=== PATIENT | female | born 1995 | race Caucasian/White ===

== ENCOUNTER 2024-01-03 22:37 | Inpatient (IN) | payer BC, SELFPAY ==
[2024-01-03 22:00] VITALS: BMI 27.8
[2024-01-03 22:33] VITALS: RESP 16
[2024-01-03 22:50] LABS: Basophils # 0.1 10^3/uL (0.0-0.1); Basophils % 0.4 %; Eosinophils # 0.1 10^3/uL (0.0-0.8); Eosinophils % 0.5 %; Hematocrit 36.8 % (36-47); Lymphocytes # 2.3 10^3/uL (0.8-4.8); Lymphocytes % 17.2 %; Mean Corpuscular HGB Conc 33.2 g/dL (30-55); Mean Corpuscular Hemoglobin 29.8 pg (27-33); Mean Platelet Volume 10.2 fL (7.4-10.4); Monocytes # 0.7 10^3/uL (0.2-0.9); Monocytes % 5.5 %; Neutrophils # 10.14 10^3/uL (1.8-7.7); Neutrophils % 75.7 %; Nucleated Red Blood Cells % 0 %; Platelet Count 242 10^3/cmm (157-399); Red Blood Count 4.09 10^6/uL (3.85-5.65); Red Cell Distribution Width 12.4 % (12.1-15.1); White Blood Count 13.39 10^3/uL (3.29-11.43)
[2024-01-03] MEDS: lactated ringers 1,000 ML 999 ML IV (23:12)
[2024-01-04] VITALS (90 sets, daily range): BP systolic 95–152; BP diastolic 50–89; PULSE 69–116; RESP 16–18; TEMP 36.3–37.7; O2SAT 97–100; BMI 27.8
--- NOTE | 2024-01-04 00:05 | P.ANESASSM_ITS ---
Pre-Anesthetic Assessment Height/Weight: Height 1.65 m Weight 75.75 kg Resp O2 Del Method 16 Room Air 01/03/24 22:33 01/03/24 22:00 Preop Diagnosis: Labor pain epidural Was Beta Hattie taken within 24 hours: N/A Was Clonidine taken within 24 hours: N/A Social No alcohol and No tobacco Exam alert, oriented x 3, clear to auscultation bilaterally and regular rate & rhythm Airway Submandibular: within normal limits Cervical ROM: within normal limits Mallampati: Class II Dentition: full Pulmonary None reported CV/HEM None reported None reported Hepatic None reported GI None reported Metabolic None reported Musc/skel None reported Neuropsych None reported Anesthetic Plan ASA status: 2 Anesthesia: Eval. for regional block and Regional (specify below) Risk of > 500 ml blood loss (7ml/kg in children): No Medications/Allergies Current Medications Generic Name Dose Route Start Last Admin Trade Name Freq PRN Reason Stop Dose Admin Lactated Ringer's 1,000 mls @ 999 mls/hr 01/03/24 22:56 01/03/24 23:12 Lactated Ringers IV 999 mls/hr .Q1H1M PRN Administration See label comments PFSH Anesthesia Female Reproductive History : 2 Data Anesthesia 01/03/24 22:40 Short CBC 01/03/24 Range/Units 22:40 WBC 13.39 H (3.29-11.43) 10^3/uL Hgb 12.20 (11.27-16.99) g/dL Hct 36.8 (36-47) % MCV 90.0 (85-98) fl Plt Count 242 (157-399) 10^3/cmm Neut % (Auto) 75.7 % Neut # (Auto) 10.14 H (1.8-7.7) 10^3/uL Blood Bank 01/03/24 22:40 Blood Type O Negative Rho(D) Type Rh negative Cardiac Studies: 2 No Data to Display
[2024-01-04] MEDS: lactated ringers 1,000 ML 999 ML IV (00:11)
[2024-01-04] MEDS: ROPivacaine syringe 100 MG/50 ML SYRINGE 13 MG EPIDURAL ×3 (00:27→06:31)
--- NOTE | 2024-01-04 00:37 | ANES.PROC ---
Anesthesia Procedures Procedure/Date: 01/04/24 epidural Procedure Narrative: epidural complete, bolus given, epidural pump initiated with TRACK VEHICLE REPAIRER education given, vitals taken during procedure and satisfactory throughout, patient admits to decrease pain, report of procedure to OB RN Epidural: Time Out Performed: Yes Consents Signed: Procedure Consent Consent: requested by attending/covering physician, from patient, risks and benefits reviewed and patient agrees to proceed Lumbar Level: L3-L4 Epidural position: sitting Epidural procedure: sterile prep of area, 1% lidocaine to numb the area (3 mL), 18 g needle, negative for paresthesia passed, neg for paresthesia, test dose given, 1.5% xylocaine 1:200k epi (5 mL), 0.2% Ropivacaine bolus ml (5 mL), placed PCEA, no systemic response, sterile dressing applied, L.U.D. no apparent complications and 0.2% Ropiavacaine @ mls/hr (13 mL/hr)
[2024-01-04] MEDS: dextrose 5%-lactated ringers 1,000 ML 125 ML IV (01:20)
--- NOTE | 2024-01-04 02:39 | P.PN_ITS ---
Subjective 2 Medications: Medication Review Details: Epidural assessed after patient complaints of returned discomfort during contractions. 10 mL of 2% lidocaine and 100 mcg of fentanyl given through epidural. After 15 min of no change plans were discussed to remove existing epidural and replace with a new catheter. Vitals/I&O/Wt Last Vital Signs Pulse 85 01/04/24 02:29 Resp 16 01/03/24 22:33 BP 112/66 01/04/24 02:29 Pulse Ox 100 01/04/24 00:25 O2 Del Method Room Air 01/03/24 22:00 01/03/24 01/03/24 01/04/24 14:59 22:59 06:59 Intake Total 2049 Balance 2049 Weight last 48 hrs Weight 75.75 kg Physical Exam 2 Const: COMMON NORMALS: alert Neuro: SENSORIUM/ORIENTATION: Yes alert Urinary Catheter Management: Mott: Cath Placed During This Visit: yes Urinary Catheter Date of Insertion: 01/04/24 Urinary Catheter Time of Insertion: 00:07 Data 01/03/24 22:40 Attestations 2 Medical Necessity Statement*: Pain with contractions post epidural placement Coding Level of Care Code Acute Code for Chg Fwd
--- NOTE | 2024-01-04 02:53 | PC.NURSE ---
Removed by Emely, MAGDIEL
--- NOTE | 2024-01-04 03:24 | PC.NURSE ---
Second attempt at epidural due to first not working properly for pain management.
--- NOTE | 2024-01-04 03:34 | ANES.PROC ---
Anesthesia Procedures Procedure/Date: 01/04/24 epidural Procedure Narrative: Previous epidural removed with blue tip intact, second epidural completed, bolus given, epidural pump initiated with INSURANCE SALES ASSISTANT education given, vitals taken during procedure and satisfactory throughout, patient admits to decrease pain, report of procedure to OB RN Epidural: Time Out Performed: Yes Consents Signed: Procedure Consent Consent: requested by attending/covering physician, from patient, risks and benefits reviewed and patient agrees to proceed Lumbar Level: L2-L3 Epidural position: sitting Epidural procedure: sterile prep of area, 1% lidocaine to numb the area (3 mL), 18 g needle, negative for paresthesia passed, neg for paresthesia, test dose given, 1.5% xylocaine 1:200k epi (5 mL), 0.2% Ropivacaine bolus ml (5 mL), placed PCEA, no systemic response, sterile dressing applied, L.U.D. no apparent complications and 0.2% Ropiavacaine @ mls/hr (13 mL/hr)
--- NOTE | 2024-01-04 07:17 | PM.OPHPUD ---
Labor & Delivery H&P Update Date of Procedure: January 04, 2024 Date H&P Performed: 01/03/24 H&P update information: I have reviewed H&P completed within last 30 days and I have examined patient prior to procedure Admission Diagnosis: 28-year-old 2 para 1-0-0-1 at 40 weeks and 4 days presenting in active labor. Preop diagnosis: Labor pain Other information: The patient has had an unremarkable . Her labs are as follows. Her blood type is O-. Her antibody screen was negative. She is rubella immune. She is GBS negative. She failed her first glucose screen but passed her 3-hour glucose screen. Her infectious disease profile is within normal limits. Related Problem List Diagnoses (1) 40 weeks gestation of : A&P Assessment and plan (1) 40 weeks gestation of : I anticipate routine labor and vaginal delivery. Status: Acute
[2024-01-04] MEDS: oxytocin 30 UNIT/500 ML BAG 600 UNIT IV (08:14)
--- NOTE | 2024-01-04 08:28 | PM.DELIVERY ---
Delivery Note: Date of delivery: January 04, 2024 Pre-delivery diagnoses: 28-year-old 2 para 1-0-0-1 at 40 weeks estimated gestational age Post-delivery diagnoses: Status post spontaneous vaginal delivery Procedure: Spontaneous vaginal delivery Delivering Physician: Roni Colvin Estimated blood loss (mL): 100 Pre-Delivery Course: The patient presented to the hospital in active labor. She had an epidural placed. Initially, it worked great, then it suddenly stopped working. A second epidural was placed which worked great. She progressed to 8 cm. An amniotomy was performed. She progressed to complete. She then pushed for about half hour. History History History 2 Term 1 0 Miscarriages/Ectopic 0 Living Children 1 A&P Assessment and plan (1) 40 weeks gestation of : (2) Spontaneous vaginal delivery: I anticipate routine care Coding Level of Care Code Acute Code for Chg Fwd Diagnoses 40 weeks gestation of Z3A.40 Spontaneous vaginal delivery O80
[2024-01-04] MEDS: lanolin oint 7 gm 1 APPLIC TOPICAL (12:14)
[2024-01-04] MEDS: benzocaine-menthol 78 gm Canister 1 SPRAY TOPICAL (12:14)
[2024-01-04] MEDS: docusate sodium 100 mg Capsule PO (12:14)
[2024-01-04] MEDS: ibuprofen 800 mg tablet PO (21:20)
[2024-01-05 00:07] LABS: Mean Corpuscular HGB Conc 33.4 g/dL (30-55); Mean Corpuscular Hemoglobin 30.4 pg (27-33); Mean Corpuscular Volume 90.9 fl (85-98); Mean Platelet Volume 10.8 fL (7.4-10.4); Platelet Count 209 10^3/cmm (157-399); Red Blood Count 3.52 10^6/uL (3.85-5.65); Red Cell Distribution Width 12.8 % (12.1-15.1); White Blood Count 13.68 10^3/uL (3.29-11.43)
[2024-01-05 04:00] VITALS: BP 108/71; PULSE 76; RESP 18; TEMP 36.7
--- NOTE | 2024-01-05 08:00 | ANE.PACU2 ---
Inpatient post-anesthesia follow up: Airway intact: Yes Vital signs: Temperature 97.9 F Pulse Rate 71 Respiratory Rate 16 Blood Pressure 111/75 Pulse Oximetry 97 Oxygen Delivery Me thod Room Air Oxygen Flow Rate Fraction of Inspir ed Oxygen Hydration adequate: Yes Nausea and vomiting: No Pain level: 1 Mental status: Baseline Epidural Start/End: Epidural Start Date: 01/03/24 Epidural Start Time: 00:15 Epidural End Date: 01/04/24 Epidural End Time: 09:15
[2024-01-05] MEDS: docusate sodium 100 mg Capsule PO (09:32)
[2024-01-05] MEDS: ibuprofen 800 mg tablet PO (09:32)
--- NOTE | 2024-01-05 09:35 | PM.OBGYDC ---
Discharge Providers STRATEGIC PLANNING CONSULTANT Date of Admission: 01/03/24 22:37 Date of Discharge: 01/05/24 Attending Provider at Admission: Roni Colvin MD Attending Provider at Discharge: Roni Colvin MD Primary Care Provider: Roni Colvin MD Diagnoses at Discharge Discharge Diagnosis (1) 40 weeks gestation of : Status: Acute (2) Spontaneous vaginal delivery: Status: Acute Reason for Visit Reason for Visit: labor Hospital Course Hospital Course The patient presented to the hospital in active labor. She had epidural that was effective. She had a follow-up epidural with excellent. An amniotomy was performed. She then progressed to complete and had an unremarkable delivery of a healthy female . She had a second-degree tear which was repaired in usual fashion. Her course was otherwise been unremarkable. Her bleeding has been within normal limits. Her pain has been well-controlled. She has been breast-feeding well. Information Peripartum Data: Delivery Method: Vaginal Physical Exam Narrative: The patient is alert. She appears comfortable. Her heart has a regular rate and rhythm with no murmurs appreciated. Lungs are clear to auscultation bilaterally. Her fundus is firm and below the umbilicus. Urinary Catheter Management: Mott: Cath Placed During This Visit: yes, but has since been removed by the nurse Reason for Continuing Indwelling Catheter: Decision to DC Catheter Urinary Catheter Date of Insertion: 01/04/24 Urinary Catheter Time of Insertion: 00:07 Date Urinary Catheter Removed: 01/04/24 Time Urinary Catheter Discontinued: 08:05 History History History 2 Term 1 0 Miscarriages/Ectopic 0 Living Children 1 Discharge Data Studies Completed and Pending Pending at discharge Category Date Time Status Complete Crossmatch Routine Lab 01/04/24 21:15 Results Maternal Hemorrhage Scrn Routine Lab 01/04/24 21:15 Results Rho D Immune Globulin Routine Lab 01/04/24 21:15 Results Laboratory Results WBC 13.68 10^3/uL (3.29-11.43) H 01/04/24 21:15 RBC 3.52 10^6/uL (3.85-5.65) L 01/04/24 21:15 Hgb 10.70 g/dL (11.27-16.99) L 01/04/24 21:15 Hct 32.0 % (36-47) L 01/04/24 21:15 MCV 90.9 fl (85-98) 01/04/24 21:15 MCH 30.4 pg (27-33) 01/04/24 21:15 MCHC 33.4 g/dL (30-55) 01/04/24 21:15 RDW 12.8 % (12.1-15.1) 01/04/24 21:15 Plt Count 209 10^3/cmm (157-399) 01/04/24 21:15 MPV 10.8 fL (7.4-10.4) H 01/04/24 21:15 Neut % (Auto) 75.7 % 01/03/24 22:40 Lymph % (Auto) 17.2 % 01/03/24 22:40 Banks % (Auto) 5.5 % 01/03/24 22:40 Eos % (Auto) 0.5 % 01/03/24 22:40 Baso % (Auto) 0.4 % 01/03/24 22:40 Neut # (Auto) 10.14 10^3/uL (1.8-7.7) H 01/03/24 22:40 Lymph # (Auto) 2.3 10^3/uL (0.8-4.8) 01/03/24 22:40 Banks # (Auto) 0.7 10^3/uL (0.2-0.9) 01/03/24 22:40 Eos # (Auto) 0.1 10^3/uL (0.0-0.8) 01/03/24 22:40 Baso # (Auto) 0.1 10^3/uL (0.0-0.1) 01/03/24 22:40 Nucleated RBC % (auto) 0 % 01/03/24 22:40 Nucleated RBCs # 0.0 /100WBC 01/03/24 22:40 Blood Type O Negative 01/03/24 22:40 Rho(D) Type Rh negative 01/03/24 22:40 Antibody Screen Positive 01/03/24 22:40 Antibody Identification Anti-D 01/03/24 22:40 Screen Negative (Negative) 01/04/24 21:15 Vitals Last Vital Signs Temp 98.1 F 01/05/24 04:00 Pulse 76 01/05/24 04:00 Resp 18 01/05/24 04:00 BP 108/71 01/05/24 04:00 Pulse Ox 97 01/04/24 16:15 O2 Del Method Room Air 01/04/24 16:15 Results Labs OB ([facility]): Obstetrics US 10/21/23 Blood Type O Negative 01/03/24 Antibody Screen Positive 01/03/24 Hct 32.0 % (36-47) L 01/04/24 Hgb 10.70 g/dL (11.27-16.99) L 01/04/24 Rho(D) Type Rh negative 01/03/24 Plt Count 209 10^3/cmm (157-399) 01/04/24 Discharge Plan Discharge Patient Disposition: Home Condition: Stable Prescriptions: New ibuprofen 800 mg Tablet 800 mg PO TID Qty: 45 0RF Continued 1 tab PO DAILY Discharge Orders: Discharge Order (Routine); Ordered 01/05/24 Ordered By: Roni Colvin Discharge Diet: Usual diet Discharge Activity: Limit activity as instructed Patient Instructions: Depression (GEN), Bleeding (GEN), Hemorrhage (GEN), OB Food/Drug Interaction Guide, OB Care at Home, OB Home Care, OB Vaginal Deliveries, Abnormal Bleeding Discharge Attestations STRATEGIC PLANNING CONSULTANT Time Spent in Discharge Care*: less than 30 min Coding Level of Care Code Acute Code for Chg Fwd Diagnoses 40 weeks gestation of Z3A.40 Spontaneous vaginal delivery O80
[2024-01-05 10:50] VITALS: BP 111/75; PULSE 71; RESP 16; TEMP 36.6
[2024-01-05 11:00] VITALS: BP 111/75; PULSE 71; RESP 16; TEMP 36.6
== END 2024-01-05 11:10 | disposition home or self-care (01) | DRG 807 ==
LOC: OPOB 22:37 → OBGYN 22:38
PROVIDERS: Admitting Provider Family Medicine; PCP Family Medicine; Visit Provider Family Medicine
DX: O70.1 Second degree perineal laceration during delivery (principal); Z37.0 Single live birth; Z3A.40 40 weeks gestation of pregnancy
CPT/HCPCS: 36415; 36430; 51702; 59025; 59409; 80503; 85025; 85027; 85460; 86850; 86870; 86900; 90384; 96372; 96374; 99211; J2590; J2795; J3010; J7120; J7121

== ENCOUNTER 2025-03-15 14:44 | Emergency (ER) | payer BC, SELFPAY ==
[2025-03-15] VITALS (7 sets, daily range): BP systolic 108–120; BP diastolic 59–68; PULSE 68–83; RESP 16–21; TEMP 36.6; O2SAT 97–100; BMI 23.3
--- NOTE | 2025-03-15 14:51 | ECG_ITS ---
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 Measurements Intervals [place] Rate: 71 P: 66 MN: 174 QRS: 58 QRSD: 62 T: 18 QT: 346 QTc: 377 Interpretive Statements SINUS RHYTHM WITH SINUS ARRHYTHMIA SEPTAL MYOCARDIAL INFARCTION , OF INDETERMINATE AGE [40+ ms Q WAVE IN V1/V2] No previous ECG available for comparison Electronically Signed On 03-16-2025 11:36:42 CDT by Tony Mclean M.D. [email or web address]
--- NOTE | 2025-03-15 14:57 | XR_ITS ---
WS: [id number] XR chest 1V portable [id number] REASON FOR EXAM: cp FINDINGS: The heart and the mediastinum are within normal limits. Calcified granulomas disease bilaterally. No acute pulmonary parenchymal or pleural abnormality is identified. Bony thorax is intact without significant focal abnormality. XR/XR chest 1V portable [id number] IMPRESSION: Acute chest abnormality.
--- NOTE | 2025-03-15 14:58 | W.ED.CHESTPA ---
HPI - Chest Pain General: Chief Complaint: Chest Pain Stated Complaint: cp,sob Time Seen by Provider: 03/15/25 14:47 Source: patient Mode of arrival: ambulatory Limitations: no limitations History of Present Illness: 29-year-old female who states over the last week she has been having some chest pain states been a sharp pain in the center of her chest she has had some slight exertional dyspnea as well. States pains roughly 2 out of 10 she denies any cough denies any fever denies any vomiting or diarrhea. Associated symptoms: Reports dyspnea; Deny abdominal pain, fever(s), nausea or vomiting Related Data Home Medications ?Medication ?Instructions ?Recorded ?Confirmed 1 tab PO DAILY 01/04/24 01/05/24 Previous Rx's ?Medication ?Instructions ?Recorded ibuprofen 800 mg tablet 800 mg PO TID #45 tabs 01/05/24 Allergies Allergy/AdvReac Type Severity Reaction Status Date / Time No Known Allergies Allergy Verified 01/05/24 03:10 Review of Systems Const: Denies: fever(s), chills, body aches or change in appetite ENMT: Denies: throat pain or dental pain Card: Reports: chest pain Resp: Reports: dyspnea GI: Denies: abdominal pain, nausea, vomiting or diarrhea Musc: Denies: neck pain or back pain Skin/Breast: Denies: rash Neuro: Denies: headache(s) Physical Exam Const: COMMON NORMALS: no acute distress, patient oriented x3 and healthy appearing HENMT: COMMON NORMALS: normocephalic and atraumatic HEAD & SCALP: normocephalic and atraumatic Eye: COMMON NORMALS: conjunctivae normal CONJUNCTIVA: Yes conjunctivae normal Neck/C-Spine: COMMON NORMALS: full ROM and supple Chest: COMMONS NORMALS: normal inspection of the chest Resp: COMMON NORMALS: normal respiratory effort, No retractions, No use of accessory muscles and clear to auscultation bilaterally AUSCULTATION: clear to auscultation bilaterally Cardio: COMMON NORMALS: regular rate, regular rhythm and No murmurs present (Cardio) RATE: regular rate RHYTHM: regular rhythm Extremity: COMMON NORMALS: normal to inspection and full ROM Neuro: COMMON NORMALS: patient oriented x3, moves all extremities and no focal motor deficits Psych: COMMON NORMALS: mental status grossly normal, Normal thought process present and cooperative THOUGHT PROCESS: Normal thought process present Skin: COMMON NORMALS: no rashes or lesions noted and no wounds GENERAL SKIN EXAM: no rashes or lesions noted Course Vital Signs: Vital signs: Vital Signs Temperature 97.9 F 03/15/25 14:57 Pulse Rate 72 03/15/25 15:35 Respiratory Rate 19 H 03/15/25 15:35 Blood Pressure 114/64 03/15/25 15:35 Pulse Oximetry 100 03/15/25 15:35 Oxygen Delivery Me thod Room Air 03/15/25 14:57 MDM - Chest Pain Medical Decision Making Patient presents here chest pain is atypical in nature she is well-appearing here D-dimer troponins are negative no signs of dissection she is stable for discharge follow-up PCP return if worsening. Medical Records I reviewed the patient's medical records. Lab Data I reviewed the patient's lab results. 03/15/25 14:55 03/15/25 14:55 Radiology Impressions Chest X-Ray 03/15/25 14:57 IMPRESSION: Acute chest abnormality. Laboratory Results WBC 6.22 10^3/uL (3.29-11.43) 03/15/25 14:55 RBC 4.49 10^6/uL (3.85-5.65) 03/15/25 14:55 Hgb 13.30 g/dL (11.27-16.99) 03/15/25 14:55 Hct 40.9 % (36-47) 03/15/25 14:55 MCV 91.1 fl (85-98) 03/15/25 14:55 MCH 29.6 pg (27-33) 03/15/25 14:55 MCHC 32.5 g/dL (30-55) 03/15/25 14:55 RDW 11.5 % (12.1-15.1) L 03/15/25 14:55 Plt Count 209 10^3/cmm (157-399) 03/15/25 14:55 MPV 10.6 fL (7.4-10.4) H 03/15/25 14:55 Neut % (Auto) 62.5 % 03/15/25 14:55 Lymph % (Auto) 29.6 % 03/15/25 14:55 [place] % (Auto) 6.1 % 03/15/25 14:55 Eos % (Auto) 1.1 % 03/15/25 14:55 Baso % (Auto) 0.5 % 03/15/25 14:55 Neut # (Auto) 3.89 10^3/uL (1.8-7.7) 03/15/25 14:55 Lymph # (Auto) 1.8 10^3/uL (0.8-4.8) 03/15/25 14:55 [place] # (Auto) 0.4 10^3/uL (0.2-0.9) 03/15/25 14:55 Eos # (Auto) 0.1 10^3/uL (0.0-0.8) 03/15/25 14:55 Baso # (Auto) 0.0 10^3/uL (0.0-0.1) 03/15/25 14:55 Nucleated RBC % (auto) 0 % 03/15/25 14:55 Nucleated RBCs # 0.0 /100WBC 03/15/25 14:55 D-Dimer <= 0.27 ug/mLFEU (0-0.59) 03/15/25 14:55 Sodium 140 mmol/L (136-145) 03/15/25 14:55 Chloride 102 mmol/L (98-107) 03/15/25 14:55 Carbon Dioxide 25 mmol/L (22-29) 03/15/25 14:55 BUN 14 mg/dL (6-20) 03/15/25 14:55 Creatinine 0.6 mg/dL (0.5-0.9) 03/15/25 14:55 GFR Calculation 118.2 mL/min (90-130) 03/15/25 14:55 Glucose 96 mg/dL (65-115) 03/15/25 14:55 Calculated Osmolality 290 mOsm/kg (285-295) 03/15/25 14:55 Calcium 9.3 mg/dL (8.5-10.5) 03/15/25 14:55 Total Bilirubin 0.3 mg/dL (0.15-1.2) 03/15/25 14:55 AST 17 U/L (0-32) 03/15/25 14:55 ALT 12 U/L (0-33) 03/15/25 14:55 Alkaline Phosphatase 80 U/L (35-105) 03/15/25 14:55 Troponin T Baseline < 6 ng/L (0-10) 03/15/25 14:55 Total Protein 7.2 g/dL (6.6-8.7) 03/15/25 14:55 Albumin 4.6 g/dL (3.5-5.2) 03/15/25 14:55 Globulin 2.6 g/dL (1.3-4.6) 03/15/25 14:55 HCG, Qual Negative (Negative) 03/15/25 14:55 All radiology interpretation(s) finalized by discharge EKG Data EKG 1: I personally reviewed and interpreted this EKG as follows: EKG interpretation date: 03/15/25 EKG interpretation time: 14:51 Interpretation: nsr hr [address] or t wave abnormalities qrs 62 qtc 368 Discharge Plan Discharge Patient Disposition: Home Clinical Impression: Atypical chest pain Condition: Stable Prescriptions: No Action 1 tab PO DAILY ibuprofen 800 mg Tablet 800 mg PO TID Qty: 45 0RF Discharge Orders: Discharge ED (Routine); Ordered 03/15/25 Ordered By: Jm Martins Referrals: Roni Colvin MD [Primary Care Provider, [facility]] - 4-7 days Discharge Diet: Advance as tolerated Discharge Activity: Resume usual activity Patient Instructions: Chest Pain (ED) Print Language: Nepalese Coding Level of Care Code ED Deskidding Machine Operator for Daniel Kumar
[2025-03-15 15:13] LABS: Basophils % 0.5 %; Eosinophils # 0.1 10^3/uL (0.0-0.8); Eosinophils % 1.1 %; Hematocrit 40.9 % (36-47); Lymphocytes # 1.8 10^3/uL (0.8-4.8); Lymphocytes % 29.6 %; Mean Corpuscular HGB Conc 32.5 g/dL (30-55); Mean Corpuscular Hemoglobin 29.6 pg (27-33); Mean Corpuscular Volume 91.1 fl (85-98); Mean Platelet Volume 10.6 fL (7.4-10.4); Monocytes # 0.4 10^3/uL (0.2-0.9); Monocytes % 6.1 %; Neutrophils # 3.89 10^3/uL (1.8-7.7); Neutrophils % 62.5 %; Nucleated Red Blood Cells % 0 %; Platelet Count 209 10^3/cmm (157-399); Red Blood Count 4.49 10^6/uL (3.85-5.65); Red Cell Distribution Width 11.5 % (12.1-15.1); White Blood Count 6.22 10^3/uL (3.29-11.43)
[2025-03-15 15:32] LABS: HCG, Serum Qual Negative (Negative)
[2025-03-15 15:37] LABS: Troponin(5th) Baseline < 6 ng/L (0-10)
[2025-03-15 15:38] LABS: D Dimer <= 0.27 ug/mLFEU (0-0.59)
[2025-03-15 15:39] LABS: Alanine Aminotransferase 12 U/L (0-33); Albumin Level 4.6 g/dL (3.5-5.2); Alkaline Phosphatase 80 U/L (35-105); Aspartate Amino Transferase 17 U/L (0-32); Blood Urea Nitrogen 14 mg/dL (6-20); Calcium 9.3 mg/dL (8.5-10.5); Carbon Dioxide 25 mmol/L (22-29); Chloride 102 mmol/L (98-107); Creatinine Clr Calc Pharmacy 130.1707; Globulin 2.6 g/dL (1.3-4.6); Glomerular Filtration Rate 118.2 mL/min (90-130); Glucose 96 mg/dL (65-115); Osmolality Calculated 290 mOsm/kg (285-295); Sodium 140 mmol/L (136-145); Total Bilirubin 0.3 mg/dL (0.15-1.2); Total Protein 7.2 g/dL (6.6-8.7)
== END 2025-03-15 15:55 | disposition home or self-care (01) ==
PROVIDERS: Emergency Provider Emergency Medicine; PCP Family Medicine
DX: R07.89 Other chest pain (principal)
CPT/HCPCS: 71045; 80053; 84484; 84703; 85025; 85378; 93005; 99285

== ENCOUNTER 2025-04-13 05:00 | Outpatient (RCR) | payer BC, OTHER, SELFPAY | END 2025-05-13 23:59 | disposition home or self-care (01) | LOC: SPT 05:00 | PROVIDERS: Visit Provider Family Medicine | DX: N39.3 Stress incontinence (female) (male) (principal) | CPT/HCPCS: 97110; 97161 ==

== ENCOUNTER 2025-05-14 05:00 | Outpatient (RCR) | payer BC, OTHER, SELFPAY | END 2025-06-13 23:59 | disposition home or self-care (01) | LOC: SPT 05:00 | PROVIDERS: Visit Provider Family Medicine | DX: N39.3 Stress incontinence (female) (male) (principal) | CPT/HCPCS: 97110 ==

== ENCOUNTER 2025-06-14 05:00 | Outpatient (RCR) | payer BC, OTHER, SELFPAY | END 2025-07-13 23:59 | disposition home or self-care (01) | LOC: SPT 05:00 | PROVIDERS: Visit Provider Family Medicine | DX: N39.3 Stress incontinence (female) (male) (principal) | CPT/HCPCS: 97110 ==